=== PATIENT | female | born 1950 | race Caucasian/White ===

== ENCOUNTER 2017-12-23 13:21 | Emergency (ER) | payer OTHER, MEDICARE ==
[~2017-12-23] VITALS: Ht 162.6 cm; Wt 101.2 kg
[~2017-12-23 13:21] MED LIST: ALPRAZOLAM0.5 MG PO; CIPRO500 MG PO; FEOSOL325 MG PO; FLAGYL500 MG PO; HYDROCODON-ACE1 EAC7 PO; IMODIUM A-D2 MG PO; KLONOPIN0.5 M1 PO; LIALDA1.2 GM PO; LOPRESSOR25 MG PO; NEXIUM20 MG PO; PAROXETINE HCL20 MG PO; PREDNISONE20 MG PO; PREDNISONE5 MG PO; PROTONIX40 MG PO; VITAMIN D250000 UNIT PO; VITAMIN D35000 UNIT PO
[2017-12-23 13:48] LABS: HEMATOCRIT 41.9 % (36.0-46.0); HEMOGLOBIN 14.1 G/DL (11.9-15.5); MCH 32.9 PG (29.0-34.0); MCHC 33.7 G/DL (30.0-36.0); MCV 97.9 FL (83-99); PLATELET COUNT 269 K/uL (156-360); RBC DIS.WIDTH-CV 12.9 % (11.8-14.6); RBC DIS.WIDTH-SD 46.3 % (39-53); RED BLOOD COUNT 4.28 M/uL (3.80-5.20); WHITE BLOOD COUNT 6.4 K/uL (4.1-10.2)
[2017-12-23 13:55] LABS: CHLORIDE 109 mEq/L (99-109); POTASSIUM 4.6 mEq/L (3.7-5.4); SODIUM 141 mEq/L (136-147)
[2017-12-23 13:57] LABS: GLUCOSE 107 mg/dL (70-99); TOTAL PROTEIN 6.9 g/dL (6.4-8.3)
[2017-12-23 13:59] LABS: TOTAL BILIRUBIN 0.7 mg/dL (0.0-1.0)
[2017-12-23 14:01] LABS: ALKALINE PHOSPHATASE 69 IU/L (3-129); CREATININE 1.1 mg/dL (0.6-1.3); GFR ESTIMATE (CALCULATED) 53 mL/min/
[2017-12-23 14:02] LABS: UREA NITROGEN (BUN) 10 mg/dL (9-23)
[2017-12-23 14:03] LABS: AST (GOT) 22 IU/L (2-34)
[2017-12-23 14:04] LABS: ALT (GPT) 32 IU/L (3-49); LIPASE 24 U/L (1.0-51.0)
[2017-12-23 15:36] LABS: APPEARANCE CLEAR ((CLEAR)); BILIRUBIN NEGATIVE; BLOOD NEGATIVE; COLOR YELLOW ((YELLOW)); GLUCOSE (STRIP) NEGATIVE; KETONES NEGATIVE; LEUKOCYTES NEGATIVE; NITRITE NEGATIVE; PROTEIN (STRIP) NEGATIVE; SPECIFIC GRAVITY 1.008 (1.000-1.030); UCUL ADDED? NO; UROBILINOGEN 0.2 MG/DL (0.2-1.0)
[2017-12-23] MEDS ORDERED: BENTYL20 MG PO (17:19)
[2017-12-23 17:55] VITALS: BP 163/83
== END 2017-12-23 17:55 | disposition home or self-care (01) ==
LOC: EME 13:21
DX: R10.30 Lower abdominal pain, unspecified (principal); R19.7 Diarrhea, unspecified; K50.90 Crohn's disease, unspecified, without complications; K57.30 Diverticulosis of large intestine without perforation or abscess without bleeding; I10 Essential (primary) hypertension; Z90.49 Acquired absence of other specified parts of digestive tract; Z87.891 Personal history of nicotine dependence
CPT/HCPCS: 74176; 80053; 81003; 83690; 85027; 99281; 99285; J7030